=== PATIENT | female | born 1985 | race Caucasian/White ===

== ENCOUNTER 2021-11-01 10:29 | Emergency (ER) | payer OTHER, SELFPAY ==
[2021-11-01] VITALS (38 sets, daily range): BP systolic 134–201; BP diastolic 71–129; PULSE 63–94; RESP 13–26; TEMP 36.9; O2SAT 95–100; BMI 27.8
[2021-11-01 11:08] LABS: Add Manual Diff / Slide Review NO; Basophils Absolute Auto 0 /uL (0-100); Basophils Percent Auto 0.5 % (0-2); Eosinophils Absolute Auto 100 /uL (0-450); Eosinophils Percent Auto 1.8 % (2-4); Hematocrit 35.2 % (36-46); Hemoglobin 11.1 g/dL (12.0-16.0); Lymphocytes Absolute Auto 1100 /uL (1100-4500); Lymphocytes Percent Auto 19.3 % (25-40); Mean Corpuscular HGB Conc 31.6 % (30-36); Mean Corpuscular Hemoglobin 24.3 PG (26-34); Mean Corpuscular Volume 76.8 fL (80-100); Monocytes Absolute Auto 500 /uL (0-900); Monocytes Percent Auto 9.5 % (3-14); Neutrophils Absolute Auto 4000 /uL (1500-7000); Neutrophils Percent Auto 68.9 % (50-75); Platelet Count 375 X10^3/uL (150-400); Red Blood Cell Count 4.59 X10^6/uL (4.0-5.2); Red Cell Distribution Width 16.8 % (11.6-14.8); White Blood Cell Count 5.8 X10^3/uL (4.5-11.0)
[2021-11-01 11:18] LABS: Alanine Aminotransferase 25 IU/L (<35); Albumin 4.1 g/dL (3.5-5.0); Albumin Globulin Ratio 1.4 (1.0-2.8); Alkaline Phosphatase 66 U/L (38-126); Aspartate Aminotransferase 28 IU/L (14-36); BUN Creatinine Ratio 10.4 (6-22); Bilirubin Total 0.5 mg/dL (0.2-1.3); Blood Urea Nitrogen 8 mg/dL (7-17); Calcium 8.8 mg/dL (8.4-10.2); Carbon Dioxide 25 mmol/L (22-32); Chloride 107 mmol/L (98-107); Estimated Glomerular Filt Rate > 60.0 mL/min (>60); Glucose 93 mg/dL (70-100); HEMOLYSIS < 15 (0-50); Lipase 78 U/L (23-300); Potassium 3.9 mmol/L (3.4-5.1); Sodium 138 mmol/L (137-145); Total Protein 7.1 g/dL (6.3-8.2)
--- NOTE | 2021-11-01 11:54 | ED.ABDPAIN ---
HPI - Abdominal Pain General Chief Complaint: Abdominal Pain Stated Complaint: STOMACH PAIN AND A BULDGE Time Seen by Provider: 11/01/21 11:53 Source: patient Mode of arrival: Ambulatory Limitations: no limitations History of Present Illness HPI narrative: 36-year-old female comes with complaint of abdominal pain and a bulge that is close to the umbilicus. Patient states she was working out a lot yesterday. She had a little bit of discomfort but woke up this morning quite a bit of pain and a bulge in her abdomen which was new. Patient attempted to reduce she says it will push inwards but is quite painful. Has had prior abdominal surgeries with a colon resection that was laparoscopic in 2002 for colon cancer. Patient normally follows at [facility] for her follow-up care but her surgery was at [place] in [place]. Patient is on Metamucil and medications to help with bowel movements but no other daily medications. She denies fevers or chills, no nausea or vomiting, she has been stooling regularly, patient does not have any dysuria urgency or frequency. She has any chest pain or shortness of breath no known drug allergies. No tobacco, occasional alcohol, no illicit. Related Data Previous Rx's Medication Instructions Recorded hydrocodone 7.5 mg-acetaminophen 1 tab PO Q6H PRN #10 tab 11/01/21 325 mg tablet Allergies Allergy/AdvReac Type Severity Reaction Status Date / Time No Known Drug Allergies Allergy Verified 11/01/21 10:44 Review of Systems Review of Systems ROS Unobtainable: All systems reviewed & are unremarkable except as noted in HPI and below Patient History Social History Smoking Status: Unknown if ever smoked Smoking Status: Unknown if ever smoked alcohol intake frequency: holidays/special occasions only Substance Use Type: does not use Exam Narrative Exam Narrative: GENERAL: Alert and oriented x three, female in mild distress. HEENT: Head normocephalic, atraumatic, EOMI, pupils reactive, face symmetric, moist mucous membranes NECK: Supple, full range of motion CARDIOVASCULAR: Regular rate and rhythm without murmurs, rubs or gallops. RESPIRATORY: Breath sounds equal bilaterally, no wheezes rales or rhonchi. ABDOMEN: Soft, patient has mild generalized tenderness but does have an easily visualized bulge that is approximately 4 cm circumference just superior into the right of the umbilicus which is quite tender and I am unable to easily reduce with palpation. Bowel sounds slightly decreased in all quadrants. No guarding or rebound, rigidity, no mass. : No CVA tenderness EXTREMITIES: Normal range of motion, no clubbing or edema. Neurovascularly intact NEUROLOGICAL: Cranial nerves II through XII grossly intact. Moving all extremities SKIN: Warm, dry, no petechiae, no rashes or lesions. Initial Vital Signs Initial Vital Signs: Vital Signs Temperature 98.5 F 11/01/21 10:38 Pulse Rate 75 11/01/21 10:38 Respiratory Rate 15 11/01/21 10:38 Blood Pressure 187/82 H 11/01/21 10:38 Pulse Oximetry 100 11/01/21 10:38 Procedures Procedural Sedation Time of procedure: 15:00 Consent signed: Yes Time out performed: Yes Indication: other (abdominal wall hernia) ASA Class: II Mallampati Airway Classification: Class II Time of Last PO Intake: 11:00 Preparation: security monitor applied, pulse oximeter, capnometry used, supplemental O2 applied, suction/airway equipment at bedside and IV secured IV Propofol dose (mg): 150 Intraservice time/total sedation time (min): 25 ED Sedation Level: Moderate (Concious) Patient Tolerated Procedure: Well Complications: Respiratory Depression-Repositioning Required Interventions: Airway repositioned Additional Comments: Patient had 50 mg aliquots given. Minimal sedation with 100 mg additional 50 mg was given. Patient had a very short period of moderate sedation she did have chin lift but no other interventions. This was very short lived and patient was conversant again. Course Orders Ordered: Discontinued Medications Hydrocodone Bitart/Acetaminophen (Hydrocodone/Acet 5/325 Tablet) 2 tab PO NOW ONE Stop: 11/01/21 16:30 Last Admin: 11/01/21 16:45 Dose: 2 tab Documented by: SIERRA Sodium Chloride (Normal Saline 0.9%) 1,000 mls @ 1,000 mls/hr IV BOLUS ONE Stop: 11/01/21 13:02 Last Infusion: 11/01/21 13:33 Dose: 0 mls/hr Documented by: Admin: 11/01/21 12:19 Dose: 1,000 mls/hr Documented by: RITA Ketorolac Tromethamine (Ketorolac 30 Mg/Ml Vial) 15 mg IV NOW ONE Stop: 11/01/21 12:04 Last Admin: 11/01/21 12:19 Dose: 15 mg Documented by: RITA Lorazepam (Lorazepam 2 Mg/Ml Inj) 0.5 mg IV NOW ONE Stop: 11/01/21 12:26 Last Admin: 11/01/21 12:38 Dose: 0.5 mg Documented by: SIERRA Morphine Sulfate (Morphine 4 Mg/Ml Inj) 4 mg IV NOW ONE Stop: 11/01/21 15:13 Last Admin: 11/01/21 15:15 Dose: 4 mg Documented by: SIERRA Propofol (Propofol 200 Mg/20 Ml Vial) 75 mg 1 mg/kg (75 mg) IV NOW ONE Stop: 11/01/21 13:45 Last Admin: 11/01/21 15:41 Dose: Not Given Documented by: SIERRA Propofol (Propofol 200 Mg/20 Ml Vial) 150 mg 2 mg/kg (150 mg) IV NOW ONE Stop: 11/01/21 15:42 Last Admin: 11/01/21 15:05 Dose: 150 mg Documented by: SIERRA Reevaluation(s) Reevaluation #1: Patient much more comfortable after medications. Reviewed labs and findings on imaging. Discussed recommendations from general surgery. Time: 13:35 Reevaluation #2: Patient states pain is improved. We reviewed recommendations from General surgery. Patient was offered to stay here overnight and go to the OR tomorrow for repair of her hernia. She defers and would like to return home plan for outpatient follow-up. We discussed no bowel all within the hernia sac itself today but we discussed return precautions, signs and symptoms to watch for to return emergently. She has tolerated hydrocodone while in the past will give a prescription for this today and recommended to continue stool softeners to make sure she is having regular soft stools. Patient will contact General surgery on Wednesday morning to set up follow-up in Dr. Vidal will work on helping to secure her a slot for the OR. We also discussed to follow up with her surgical team at [facility] and CT disc was given she has some inflammatory changes at the stump and if she prefers she can follow with them for repair. All questions answered. Time: 16:18 Consultations Consultation #1: Dr. Vidal, general surgery. Discussed patient has hernia that is not easily reduced initially patient does have prior surgical history. Agrees with plan to get CT and evaluate. States it may be appropriate depending on CT findings to attempt sedation and reduction in the emergency department. Will recontact with findings. Time: 12:15 Consultation #2: Dr. Vidal, general surgery. Plans to come to the emergency department with procedural sedation performed by myself and Dr. Vidal will attempt reduction. Time: 13:35 Vital Signs Vital signs: Vital Signs - 8 hr 11/01/21 10:38 11/01/21 12:00 11/01/21 13:57 Temperature 98.5 F Pulse Rate 75 63 86 Respiratory Rate 15 18 Blood Pressure 187/82 H 167/90 H Pulse Oximetry 100 99 100 11/01/21 14:00 11/01/21 14:05 11/01/21 14:10 Temperature Pulse Rate 81 81 83 Respiratory Rate 18 16 18 Blood Pressure 160/91 H 147/93 H 148/88 H Pulse Oximetry 100 100 100 11/01/21 14:15 11/01/21 14:20 11/01/21 14:21 Temperature Pulse Rate 71 85 92 H Respiratory Rate 19 18 17 Blood Pressure 134/76 181/76 H Pulse Oximetry 100 99 99 11/01/21 14:25 11/01/21 14:26 11/01/21 14:30 Temperature Pulse Rate 66 81 85 Respiratory Rate 19 17 18 Blood Pressure 160/92 H Pulse Oximetry 98 98 99 11/01/21 14:31 11/01/21 14:35 11/01/21 14:40 Temperature Pulse Rate 85 75 94 H Respiratory Rate 18 15 Blood Pressure 164/73 H 181/129 H 186/102 H Pulse Oximetry 99 98 99 11/01/21 14:45 11/01/21 14:50 11/01/21 14:51 Temperature Pulse Rate 74 81 74 Respiratory Rate 19 18 15 Blood Pressure 201/91 H Pulse Oximetry 98 98 99 11/01/21 14:55 11/01/21 15:00 11/01/21 15:05 Temperature Pulse Rate 69 88 92 H Respiratory Rate 19 25 H Blood Pressure 165/91 H 157/86 H Pulse Oximetry 98 100 97 11/01/21 15:10 11/01/21 15:15 11/01/21 15:20 Temperature Pulse Rate 93 H 86 69 Respiratory Rate 19 21 17 Blood Pressure 170/95 H 167/91 H 147/86 H Pulse Oximetry 97 98 98 11/01/21 15:25 11/01/21 15:30 11/01/21 15:35 Temperature Pulse Rate 67 71 69 Respiratory Rate 16 14 14 Blood Pressure 135/81 144/71 H 141/82 H Pulse Oximetry 99 99 99 11/01/21 15:40 11/01/21 15:45 11/01/21 15:46 Temperature Pulse Rate 67 65 81 Respiratory Rate 26 H 16 20 Blood Pressure 151/81 H Pulse Oximetry 99 98 98 11/01/21 15:50 11/01/21 15:55 11/01/21 16:00 Temperature Pulse Rate 78 70 80 Respiratory Rate 19 15 16 Blood Pressure 142/82 H Pulse Oximetry 98 96 98 11/01/21 16:05 11/01/21 16:10 11/01/21 16:15 Temperature Pulse Rate 83 87 79 Respiratory Rate 17 20 15 Blood Pressure 152/88 H Pulse Oximetry 97 97 98 11/01/21 16:20 11/01/21 16:21 Temperature Pulse Rate 74 90 Respiratory Rate 16 17 Blood Pressure 148/98 H Pulse Oximetry 97 98 MDM - Abdominal Pain Lab Data Result diagrams: 11/01/21 10:58 11/01/21 10:58 Labs: Lab Results 11/01/21 11/01/21 11/01/21 Range/Units 10:58 10:58 13:32 WBC 5.8 (4.5-11.0) X10^3/uL RBC 4.59 (4.0-5.2) X10^6/uL Hgb 11.1 L (12.0-16.0) g/dL Hct 35.2 L (36-46) % MCV 76.8 L (80-100) fL MCH 24.3 L (26-34) PG MCHC 31.6 (30-36) % RDW 16.8 H (11.6-14.8) % Plt Count 375 (150-400) X10^3/uL Neut % (Auto) 68.9 (50-75) % Lymph % (Auto) 19.3 L (25-40) % [place] % (Auto) 9.5 (3-14) % Eos % (Auto) 1.8 L (2-4) % Baso % (Auto) 0.5 (0-2) % Neut # (Auto) 4000 (8337-9650) /uL Lymph # (Auto) 1100 (3043-7117) /uL [place] # (Auto) 500 (0-900) /uL Eos # (Auto) 100 (0-450) /uL Baso # (Auto) 0 (0-100) /uL Sodium 138 (137-145) mmol/L Potassium 3.9 (3.4-5.1) mmol/L Chloride 107 (98-107) mmol/L Carbon Dioxide 25 (22-32) mmol/L BUN 8 (7-17) mg/dL Creatinine 0.77 (0.52-1.04) mg/dL Estimated GFR > 60.0 (>60) mL/min BUN/Creatinine Ratio 10.4 (6-22) Glucose 93 (70-100) mg/dL Calcium 8.8 (8.4-10.2) mg/dL Total Bilirubin 0.5 (0.2-1.3) mg/dL AST 28 (14-36) IU/L ALT 25 (<35) IU/L Alkaline Phosphatase 66 (38-126) U/L Total Protein 7.1 (6.3-8.2) g/dL Albumin 4.1 (3.5-5.0) g/dL Globulin 3.0 (1.7-4.1) g/dL Albumin/Globulin Ratio 1.4 (1.0-2.8) Lipase 78 (23-300) U/L SARS-CoV-2 (PCR) Negative (Negative) Point of care testing: Point of Care Testing Test Results Negative Urine Dip Bedside Urine Glucose Negative Bedside Urine Bilirubin - Negative Bedside Urine Ketone - Negative Urine Specific [place] 1.030 Bedside Urine Occult Blood +/- Bedside Urine pH 6.0 Bedside Urine Protein - Negative Bedside Urine Urobilinogen 0.2 Bedside Urine Nitrite - Negative Bedside Urine Leukocytes - Negative Esterase Imaging Data CT scan - abdomen/pelvis: Radiologist's Impression: [address] [address] [address] Scan Report Signed Patient: Aimee Cedillo MR#: [id number] : 1985 Acct:[id number] Age/Sex: 36 / F Date of Service: 11/01/21 Loc: ED Accession Number: [id number] ?? Procedure: CT abdomen pelvis w con Ordering Provider: Effie Viveros D.O. PROCEDURE:? CT ABDOMEN PELVIS W CON ? INDICATIONS:? abd hernia, hx colon resection ? TECHNIQUE:? After the administration of intravenous contrast, axial sections acquired from the lung bases to the pubic symphysis.? Coronal and sagittal reformats were performed.? For radiation dose reduction, the following was used:? automated exposure control, adjustment of mA and/or kV according to patient size.? ? COMPARISON:? [facility], CT, ABDOMEN/PELVIS WITH CONTRAST, 09/14/2014, 12:41. ? FINDINGS:? Image quality:? Excellent.? ? Lung bases:? Unremarkable. Heart:? No significant findings. ? ABDOMEN: Liver:? Unremarkable.? ? Gallbladder:? Unremarkable.? ? Biliary ducts:? Unremarkable.? ? Pancreas:? Unremarkable.? ? Spleen:? Unremarkable.? ? Adrenal Glands:? Unremarkable.? ? Kidneys and Ureters:? Unremarkable.? ? ? Stomach and Bowel:? Remote subtotal colectomy.? Inflammatory change in the residual rectal stump is again noted. Peritoneum:? No abnormal intraperitoneal fluid.? No free air.? ? Ventral Wall: ? There are 2 focal ventral abdominal wall hernias.? 1 of the hernias is an umbilical hernia, which was previously present.? Approximately 2.2 cm superior to the umbilical hernia is a midline ventral hernia which has appeared, and measures approximately 1.2 cm in diameter.? It appears to contain a recanalized umbilical vein and has ill-defined fluid within the hernia sac.? The ill-defined fluid measures approximately 5.1 x 8.7 x 3.1 cm in diameter. Abdominal Nodes:? No retroperitoneal or mesenteric adenopathy by size criteria.? Vessels:? Aorta and inferior vena cava are normal in size.? ? PELVIS: Pelvic Organs:? Unremarkable.? ? Bladder:? Unremarkable.? ? Pelvic Nodes: No enlarged lymph nodes.? Miscellaneous: No hernias are seen. ? ? ? Bones:? Unremarkable.? IMPRESSION:? ? 1. Previous umbilical hernia containing fat again noted. ? 2. Interval development of a midline ventral wall abdominal hernia proximally 2.2 cm superior to the umbilical hernia.? It appears to contain a recanalized umbilical vein, and has ill-defined fluid present within the hernia sac. ? 3. Remote subtotal colectomy with an inflammatory process again noted involving the rectal stump.? ? ? Dictated by: Luther James M.D. on 11/01/2021 at 11:49 ? ? Approved by: Luther James M.D. on 11/01/2021 at 11:57?? MDM Narrative Medical decision making narrative: This is a 36-year-old female comes with complaint of abdominal pain and bulge and on physical exam has hernia. Patient has had prior colon resection CT abdomen pelvis was obtained as well as general surgery consultation. Patient's labs are reassuring. No nausea or vomiting and she has had normal bowel movements. Patient does have a hernia with fluid collection noted she has a secondary hernia present which is nontender. She also has some inflammatory changes at the rectal stump which was discussed with the patient and she has planned for sigmoidoscopy with direct visualization on the 11 of November. After discussion with General surgery plan for attempted reduction here in the department with procedural sedation. Discussed with patient she is open to this and consent was signed. In the department patient had procedural sedation by myself with unsuccessful attempted reduction by Dr. Vidal from general surgery. Patient's CT was reviewed by Dr. Vidal who states there is no bowel present and if she prefers to return home and is comfortable can return home for outpatient follow-up and surgical treatment of her hernia. If patient prefers they are happy to admit and likely take to OR tomorrow for surgical repair. Discussed with patient after recovered from her sedation and patient elects to return home at this time. Prescription was sent for oral pain medication we discussed at length return precautions signs and symptoms to watch for and continue with stool softeners to prevent constipation. Patient did have to call back, the local pharmacy had run out of [place] 5/325 we did call and confirm this. Was changed to [place] 7.5 mg/325mg. Discharge Plan Departure Patient Disposition: Home Clinical Impression: Abdominal wall hernia Activity Restrictions/Additional Instructions: Follow-up with general surgery for repair of your hernia. Call Wednesday morning for an appointment. Dr. Vidal is hoping to take you to the OR the next 1-2 weeks since you have elected not to stay in the hospital for surgical repair. You can also follow with your surgical team at [facility] if you prefer. A CT is also provided with your findings today, it shows a hernia but without bowel in the hernia today. Please note there was some inflammatory changes at the rectal stump noted on your CT sure this with your surgical team at [facility]. You may take [place] 1-2 tablets every 6 hours as needed for pain. You can take ibuprofen up to 800 mg every 8 hours with this medication. This medication can make you sleepy do not drive, perform hazardous activities or make any major decisions while taking it. This medication will make you constipated please take a stool softener once to twice daily until stools are soft and regular. [facility]cription sent to [facility]. Please return for fevers, if you have vomiting, if you are not having any bowel movements, not passing flatus, if you are having increasing pain, if you are not able to control your pain at home, if your her knee appears to be growing in size are you having worsening symptoms please return to the emergency department. Prescriptions: New hydrocodone-acetaminophen 7.5-325 mg tablet 1 tab PO Q6H PRN (Reason: pain) Qty: 10 0RF Referrals: Erick Vidal MD [Physician] - Stand Alone Forms: Work Release Note
--- NOTE | 2021-11-01 12:03 | DI.CT.S_ITS ---
PROCEDURE: CT ABDOMEN PELVIS W CON INDICATIONS: abd hernia, hx colon resection TECHNIQUE: After the administration of intravenous contrast, axial sections acquired from the lung bases to the pubic symphysis. Coronal and sagittal reformats were performed. For radiation dose reduction, the following was used: automated exposure control, adjustment of mA and/or kV according to patient size. COMPARISON: [facility], CT, ABDOMEN/PELVIS WITH CONTRAST, 09/14/2014, 12:41. FINDINGS: Image quality: Excellent. Lung bases: Unremarkable. Heart: No significant findings. ABDOMEN: Liver: Unremarkable. Gallbladder: Unremarkable. Biliary ducts: Unremarkable. Pancreas: Unremarkable. Spleen: Unremarkable. Adrenal Glands: Unremarkable. Kidneys and Ureters: Unremarkable. Stomach and Bowel: Remote subtotal colectomy. Inflammatory change in the residual rectal stump is again noted. Peritoneum: No abnormal intraperitoneal fluid. No free air. Ventral Wall: There are 2 focal ventral abdominal wall hernias. 1 of the hernias is an umbilical hernia, which was previously present. Approximately 2.2 cm superior to the umbilical hernia is a midline ventral hernia which has appeared, and measures approximately 1.2 cm in diameter. It appears to contain a recanalized umbilical vein and has ill-defined fluid within the hernia sac. The ill-defined fluid measures approximately 5.1 x 8.7 x 3.1 cm in diameter. Abdominal Nodes: No retroperitoneal or mesenteric adenopathy by size criteria. Vessels: Aorta and inferior vena cava are normal in size. PELVIS: Pelvic Organs: Unremarkable. Bladder: Unremarkable. Pelvic Nodes: No enlarged lymph nodes. Miscellaneous: No hernias are seen. Bones: Unremarkable. IMPRESSION: 1. Previous umbilical hernia containing fat again noted. 2. Interval development of a midline ventral wall abdominal hernia proximally 2.2 cm superior to the umbilical hernia. It appears to contain a recanalized umbilical vein, and has ill-defined fluid present within the hernia sac. 3. Remote subtotal colectomy with an inflammatory process again noted involving the rectal stump. Dictated by: Luther James M.D. on 11/01/2021 at 11:49 Approved by: Luther James M.D. on 11/01/2021 at 11:57
[2021-11-01] MEDS: KETOROLAC 30 MG/ML VIAL 15 MG IV (12:19)
[2021-11-01] MEDS: SODIUM CHLORIDE 0.9% 1,000 ML 1000 ML IV (12:19)
[2021-11-01] MEDS: LORazepam 2 MG/ML INJ 0.5 MG IV (12:38)
[2021-11-01 14:55] LABS: COVID19 -Nasal RAPID Negative (Negative)
[2021-11-01] MEDS: propofoL 200 MG/20 ML VIAL 150 MG IV (15:05)
[2021-11-01] MEDS: MORPHINE 4 MG/ML INJ IV (15:15)
[2021-11-01] MEDS: HYDROCODONE/ACET 5/325 TABLET 2 TAB PO (16:45)
== END 2021-11-01 16:47 | disposition home or self-care (01) ==
PROVIDERS: Emergency Provider Emergency Medicine
DX: K43.9 Ventral hernia without obstruction or gangrene (principal); Z20.822 Contact with and (suspected) exposure to COVID-19
CPT/HCPCS: 36415; 74177; 80053; 81003; 81025; 83690; 85025; 87635; 96374; 96375; 99156; 99157; 99284; 99285; 99291; C9803; J1885; J2060; J2270; J2704; Q9967

== ENCOUNTER 2021-11-03 11:58 | Inpatient (IN) | payer OTHER, SELFPAY ==
[2021-11-03 12:13] VITALS: PULSE 73; RESP 17; TEMP 36.6; O2SAT 99; BMI 27.4
[2021-11-03 14:43] LABS: Add Manual Diff / Slide Review NO; Basophils Absolute Auto 0 /uL (0-100); Basophils Percent Auto 0.7 % (0-2); Eosinophils Absolute Auto 0 /uL (0-450); Eosinophils Percent Auto 0.3 % (2-4); Hematocrit 34.2 % (36-46); Hemoglobin 10.8 g/dL (12.0-16.0); Lymphocytes Absolute Auto 1000 /uL (1100-4500); Lymphocytes Percent Auto 14.9 % (25-40); Mean Corpuscular HGB Conc 31.6 % (30-36); Mean Corpuscular Hemoglobin 24.3 PG (26-34); Mean Corpuscular Volume 77.1 fL (80-100); Monocytes Absolute Auto 400 /uL (0-900); Monocytes Percent Auto 6.1 % (3-14); Neutrophils Absolute Auto 5300 /uL (1500-7000); Platelet Count 350 X10^3/uL (150-400); Red Blood Cell Count 4.43 X10^6/uL (4.0-5.2); Red Cell Distribution Width 16.9 % (11.6-14.8); White Blood Cell Count 6.8 X10^3/uL (4.5-11.0)
--- NOTE | 2021-11-03 14:50 | ED.ABDPAIN ---
HPI - Abdominal Pain General Chief Complaint: Abdominal Pain Stated Complaint: Abd Wall Hernia Time Seen by Provider: 11/03/21 14:37 Source: patient Mode of arrival: Ambulatory History of Present Illness HPI narrative: This 36-year-old female presents with a previously known ventral hernia, she was seen here 2 days ago with an incarcerated hernia. Surgery was consulted, the hernia was not reducible. However there was no bowel in the hernia. The intent was to follow-up for scheduled surgery. She is back with exacerbation of pain, the hernia continues to protrude. She has no fever or chills. She has nausea, however she has not had anything to eat or drink since yesterday. BMs are normal. She has no fever chills. She has a prior history of subtotal colectomy, and a known umbilical hernia. Has nose or small bowel obstruction she has no history of this ventral hernia, it is quite new. She describes it as simply popping up about 3 days ago. She has no dysuria or hematuria. She is on control, is unlikely. Recent test was negative. She is vaccinated for COVID-19. Recent COVID-19 testing is negative Related Data Home Medications Medication Instructions Recorded Confirmed diphenoxylate-atropine 2.5 1 tab PO Q6H 11/03/21 11/03/21 mg-0.025 mg tablet levonorgestrel 0.15 mg-ethinyl 1 tab PO DAILY 11/03/21 11/03/21 estradiol 0.03 mg tablet (Altavera (28)) methylphenidate HCl 36 mg 36 mg PO DAILY 11/03/21 11/03/21 tablet,extended release 24 hr pantoprazole 40 mg tablet,delayed 40 mg PO DAILY 11/03/21 11/03/21 release Allergies Allergy/AdvReac Type Severity Reaction Status Date / Time No Known Drug Allergies Allergy Verified 11/01/21 10:44 Review of Systems Constitutional Constitutional: Denies chills, Denies fatigue, Denies fever(s) and Denies headache(s) ENT Ears, Nose, Mouth, and Throat: Denies vertigo, Denies dizziness, Denies headache(s), Denies neck pain, Denies sinus pain and Denies sore throat Cardiovascular Cardiovascular: Denies chest pain, Denies irregular heart rhythm and Denies dyspnea Respiratory Respiratory: Denies cough and Denies dyspnea Gastrointestinal Gastrointestinal: Reports as per HPI Genitourinary Genitourinary: Denies dysuria Musculoskeletal Musculoskeletal: Denies back pain and Denies neck pain Integumentary/Breasts Skin/Breast: Denies lesions and Denies rash Neurologic Neurologic: Denies confusion, Denies vertigo, Denies dizziness and Denies headache(s) Psychiatric Psychiatric: Denies confusion Endocrine Endocrine: Denies fatigue Hematologic/Lymphatic On Anticoagulants: No Patient History Medical History (Updated 11/03/21 @ 15:00 by Adilson Diaz MD) Abdominal wall hernia Surgical History Status post partial colectomy Social History household members: spouse Smoking Status: Never smoker alcohol intake: current Smoking Status: Unknown if ever smoked alcohol intake frequency: holidays/special occasions only Substance Use Type: does not use Exam Initial Vital Signs Initial Vital Signs: Vital Signs Temperature 97.8 F 11/03/21 12:13 Pulse Rate 73 11/03/21 12:13 Respiratory Rate 17 11/03/21 12:13 Pulse Oximetry 99 11/03/21 12:13 Const General: cooperative, healthy appearing and other (Uncomfortable.) Orientation: Orientation (Normal.) [facility] Head: normocephalic and atraumatic Mouth: other (Dry oral mucosa. No oropharyngeal erythema.) Eyes General: appearance normal, both eyes and all related structures Resp Auscultation: clear to auscultation bilaterally Cardio Rate: regular rate Rhythm: regular rhythm Heart Sounds: S1 normal, S2 normal, no click, no murmurs and no rubs GI Other: Non reducible ventral hernia in the right upper abdomen. No abdominal distension. Normal bowel sounds. No other masses. Skin General: no rashes or lesions noted Neuro General: patient alert, patient awake, patient oriented x3 and no focal motor deficits Extrem General: normal to inspection, no pedal edema and no calf tenderness Psych Mental Status: mental status grossly normal Course Course Course Narrative: The case was discussed with Dr. Yu, on-call surgeon. He is aware for due to her recent ER visit. He is also present in the department due to another case. Following his evaluation is decided that she will go to surgery today. Orders Ordered: ED Orders 11/03/21 14:30 Complete Blood Count AUTO DIFF Stat Comprehensive Metabolic Panel Stat Lipase Stat 11/03/21 15:24 COVID19 -Nasal swab/Pre-Proc Stat Acetaminophen (Acetaminophen 325 Mg Tablet) 650 mg PO Q6HR [facility] Last Admin: 11/03/21 18:23 Dose: 650 mg Documented by: ROSS Hydromorphone HCl (Hydromorphone 0.5 Mg Inj) 0.5 mg IV Q2H PRN PRN Reason: Breakthrough pain only (8-10) Last Admin: 11/03/21 21:22 Dose: 0.5 mg Documented by: Admin: 11/03/21 18:24 Dose: 0.5 mg Documented by: ROSS Sodium Chloride (Normal Saline 0.9%) 1,000 mls @ 1,000 mls/hr IV BOLUS PRN PRN Reason: Fluid replacement Lactated Ringer's (Lactated Ringers) 1,000 mls @ 100 mls/hr IV CONT [facility] Last Admin: 11/03/21 18:25 Dose: 100 mls/hr Documented by: ROSS Ibuprofen (Ibuprofen 600 Mg Tablet) 600 mg PO Q6HR [facility] Last Admin: 11/03/21 18:24 Dose: 600 mg Documented by: ROSS Naloxone HCl (Naloxone 0.4 Mg/Ml Vial) 0.2 mg IV Q2MIN PRN PRN Reason: Opiate Reversal Ondansetron HCl (Ondansetron 4 Mg/2 Ml Inj) 4 mg IV Q6HR [facility] Last Admin: 11/03/21 20:16 Dose: Not Given Documented by: ROGE Psyllium Hydrophilic Mucilloid (Psyllium Husk 1 Packet) 1 packet PO DAILY [facility] Discontinued Medications Hydromorphone HCl (Hydromorphone 0.5 Mg Inj) 0.5 mg IV NOW ONE Stop: 11/03/21 14:48 Last Admin: 11/03/21 15:17 Dose: 0.5 mg Documented by: ISAI Sodium Chloride (Normal Saline 0.9%) 1,000 mls @ 1,000 mls/hr IV BOLUS ONE Stop: 11/03/21 16:07 Last Infusion: 11/03/21 16:53 Dose: 0 mls/hr Documented by: Admin: 11/03/21 15:17 Dose: 1,000 mls/hr Documented by: ISAI Ondansetron HCl (Ondansetron 4 Mg/2 Ml Inj) 4 mg IV NOW ONE Stop: 11/03/21 14:48 Last Admin: 11/03/21 15:17 Dose: 4 mg Documented by: ISAI Vital Signs Vital signs: Vital Signs - 8 hr 11/03/21 15:25 Pulse Rate 78 Respiratory Rate 16 Pulse Oximetry 99 MDM - Abdominal Pain Lab Data Result diagrams: 11/03/21 14:30 11/03/21 14:30 Labs: Lab Results 11/03/21 11/03/21 11/03/21 Range/Units 14:30 14:30 15:24 WBC 6.8 (4.5-11.0) X10^3/uL RBC 4.43 (4.0-5.2) X10^6/uL Hgb 10.8 L (12.0-16.0) g/dL Hct 34.2 L (36-46) % MCV 77.1 L (80-100) fL MCH 24.3 L (26-34) PG MCHC 31.6 (30-36) % RDW 16.9 H (11.6-14.8) % Plt Count 350 (150-400) X10^3/uL Neut % (Auto) 78.0 H (50-75) % Lymph % (Auto) 14.9 L (25-40) % [place] % (Auto) 6.1 (3-14) % Eos % (Auto) 0.3 L (2-4) % Baso % (Auto) 0.7 (0-2) % Neut # (Auto) 5300 (5190-4168) /uL Lymph # (Auto) 1000 L (4120-3942) /uL [place] # (Auto) 400 (0-900) /uL Eos # (Auto) 0 (0-450) /uL Baso # (Auto) 0 (0-100) /uL Sodium 139 (137-145) mmol/L Potassium 4.3 (3.4-5.1) mmol/L Chloride 109 H (98-107) mmol/L Carbon Dioxide 26 (22-32) mmol/L BUN 6 L (7-17) mg/dL Creatinine 0.76 (0.52-1.04) mg/dL Estimated GFR > 60.0 (>60) mL/min BUN/Creatinine Ratio 7.9 (6-22) Glucose 89 (70-100) mg/dL Calcium 8.4 (8.4-10.2) mg/dL Total Bilirubin 0.4 (0.2-1.3) mg/dL AST 27 (14-36) IU/L ALT 24 (<35) IU/L Alkaline Phosphatase 69 (38-126) U/L Total Protein 7.0 (6.3-8.2) g/dL Albumin 4.0 (3.5-5.0) g/dL Globulin 3.0 (1.7-4.1) g/dL Albumin/Globulin Ratio 1.3 (1.0-2.8) Lipase 44 (23-300) U/L SARS-CoV-2 (PCR) Negative (Negative) Point of care testing: Point of Care Testing Test Results Negative Urine Dip Bedside Urine Glucose Negative Bedside Urine Bilirubin - Negative Bedside Urine Ketone - Negative Urine Specific [place] 1.020 Bedside Urine Occult Blood - Negative Bedside Urine pH 6.0 Bedside Urine Protein - Negative Bedside Urine Urobilinogen - Negative Bedside Urine Nitrite - Negative Bedside Urine Leukocytes - Negative Esterase Discharge Plan Departure Patient Disposition: Admitted as Observation Clinical Impression: Incarcerated ventral hernia Admit Date/Time: 11/03/21 16:25 Admit Provider: Erick Vidal
[2021-11-03 15:05] LABS: Alanine Aminotransferase 24 IU/L (<35); Albumin Globulin Ratio 1.3 (1.0-2.8); Alkaline Phosphatase 69 U/L (38-126); Aspartate Aminotransferase 27 IU/L (14-36); BUN Creatinine Ratio 7.9 (6-22); Bilirubin Total 0.4 mg/dL (0.2-1.3); Blood Urea Nitrogen 6 mg/dL (7-17); Calcium 8.4 mg/dL (8.4-10.2); Carbon Dioxide 26 mmol/L (22-32); Chloride 109 mmol/L (98-107); Estimated Glomerular Filt Rate > 60.0 mL/min (>60); Glucose 89 mg/dL (70-100); HEMOLYSIS < 15 (0-50); Lipase 44 U/L (23-300); Potassium 4.3 mmol/L (3.4-5.1); Sodium 139 mmol/L (137-145)
[2021-11-03] MEDS: SODIUM CHLORIDE 0.9% 1,000 ML 1000 ML IV (15:17)
[2021-11-03] MEDS: HYDROMORPHONE 0.5 MG INJ IV ×4 (15:17→23:20)
[2021-11-03] MEDS: ONDANSETRON 4 MG/2 ML INJ IV (15:17)
[2021-11-03 15:25] VITALS: PULSE 78; RESP 16; O2SAT 99
[2021-11-03 16:33] LABS: COVID19 -Nasal RAPID Negative (Negative)
[2021-11-03 16:55] VITALS: BP 177/95; PULSE 76; RESP 16; TEMP 36.9; O2SAT 100
[2021-11-03 17:07] VITALS: BMI 27.4
--- NOTE | 2021-11-03 17:31 | PM.HP.1 ---
History of Present Illness History of Present Illness Date Patient Seen: 11/03/21 Time Patient Seen: 17:31 Chief complaint: Abd Wall Hernia Narrative: Aimee is a 36-year-old woman with a history of a subtotal colectomy for colon cancer several years ago presented 2 days ago with a new painful ventral hernia. CT scan indicated fatty tissue within the hernia itself. An attempt to reduce the hernia with propofol sedation was unsuccessful 2 days ago. She went home with plans to follow-up for an elective outpatient surgery but her pain was too severe today and she returned. She has been able to eat and have normal bowel function but she has been a little bit nauseous today secondary to pain. Patient History Medical History (Updated 11/03/21 @ 15:00 by Adilson Diaz MD) Abdominal wall hernia Surgical History Status post partial colectomy Family & Social History Social History: household members spouse Prior Living Arrangements House Safety & Behavioral: Feels Safe in Current Yes Environment Been Physically Hurt or No Threatened By a Person Suicidal Ideation Description None Suicide Plan Description No Plan Tobacco & Substance use: Smoking Status Never smoker alcohol intake current alcohol intake frequency holiday/special occasion Substance Use Type does not use Meds Home Medications and Allergies Home Medications Medication Instructions Recorded Confirmed Type hydrocodone 7.5 mg-acetaminophen 1 tab PO Q6H PRN #10 tab 11/01/21 Rx 325 mg tablet Allergies Allergy/AdvReac Type Severity Reaction Status Date / Time No Known Drug Allergies Allergy Verified 11/01/21 10:44 Exam Vital Signs (past 8 hours): - 11/03/21 12:13 11/03/21 15:25 Temperature 97.8 F Pulse Rate 73 78 Respiratory Rate 17 16 Pulse Oximetry 99 99 Oxygen Delivery Method Room Air Const General: No acute distress Other: The hernia is about the same size as 2 days ago No peritoneal findings Objective Labs Result Diagrams: 11/03/21 14:30 11/03/21 14:30 Labs: Laboratory Results - last 24 hr 11/03/21 11/03/21 11/03/21 14:30 14:30 15:24 WBC 6.8 RBC 4.43 Hgb 10.8 L Hct 34.2 L MCV 77.1 L MCH 24.3 L MCHC 31.6 RDW 16.9 H Plt Count 350 Neut % (Auto) 78.0 H Lymph % (Auto) 14.9 L [place] % (Auto) 6.1 Eos % (Auto) 0.3 L Baso % (Auto) 0.7 Neut # (Auto) 5300 Lymph # (Auto) 1000 L [place] # (Auto) 400 Eos # (Auto) 0 Baso # (Auto) 0 Sodium 139 Potassium 4.3 Chloride 109 H Carbon Dioxide 26 BUN 6 L Creatinine 0.76 Estimated GFR > 60.0 BUN/Creatinine Ratio 7.9 Glucose 89 Calcium 8.4 Total Bilirubin 0.4 AST 27 ALT 24 Alkaline Phosphatase 69 Total Protein 7.0 Albumin 4.0 Globulin 3.0 Albumin/Globulin Ratio 1.3 Lipase 44 SARS-CoV-2 (PCR) Negative Assessment & Plan Assessment and plan (1) Abdominal wall hernia: Status: Acute Plan Plan for ventral incisional hernia repair with mesh tomorrow. She can have a diet tonight and be NPO at midnight. Time Spent With Patient Critical Care time: I spent a total of [] minutes of critical care time on this patient's care today; this time is exclusive of procedural time. Quality VTE Deep Vein Thrombosis/Pulmonary Embolism Present on Admission: No
[2021-11-03] MEDS: ACETAMINOPHEN 325 MG TABLET 650 MG PO ×2 (18:23→23:19)
[2021-11-03] MEDS: IBUPROFEN 600 MG TABLET PO ×2 (18:24→23:20)
[2021-11-03] MEDS: LACTATED RINGERS 1,000 ML 100 ML IV (18:25)
--- NOTE | 2021-11-03 19:04 | PC.NURSE ---
Patient admitted to acute care for uncontrolled pain in her abdomen. Patient has a hernia to her r.mid quadrant around her navel. She is on a general diet now and tolerated food. She states that her pain was a 8/10, given tylenol, ibuprofen, and 0.5mg of iv dilaudid for comfort and helpful. She will be npo after midnight and will go to surgery in the morning.
[2021-11-03 19:49] VITALS: BP 138/64; PULSE 66; RESP 16; TEMP 36.2; O2SAT 99
[2021-11-03 23:18] VITALS: BP 132/77; PULSE 71; RESP 18; TEMP 36.7; O2SAT 96
[2021-11-04] VITALS (17 sets, daily range): BP systolic 96–154; BP diastolic 54–98; PULSE 63–87; RESP 10–16; TEMP 36.2–36.8; O2SAT 94–100; BMI 27.4
--- NOTE | 2021-11-04 | PATH_ITS ---
[facility] Accession Number: [id number] . 01 Material submitted: . peritoneum - PERITONEAL SAC . 02 Diagnosis: Peritoneal Sac, Incarcerated Ventral Incisional Hernia, Open Repair: Fibroconnective and fibroadipose tissue with patchy inflammation and a focal mesothelial lining with reactive changes, consistent with hernia sac. Negative for atypia or malignancy. MRV 11/11/2021 1301 Local . 02 Electronically signed: . Mi Frey MD, Pathologist NPI- [id number] . 01 Gross description: . Received in formalin, labeled with the patient's name, and additionally labeled peritoneal sac is an irregular portion of dugan-brown to yellow fibromembranous and lobulated adipose tissue measuring 9.5 x 6.5 x 2.0 cm. The serosal surface is smooth and glistening. The specimen is sectioned revealing yellow lobulated adipose cut surfaces with no masses or lesions identified. Pricing Supervisor sections are submitted in cassettes A1 and A2. ([id number]) /MRV 11/06/2021 1230 Local . 02 Pathologist provided ICD-10: K66.9 . 02 CPT . 588109 Specimen Comment: A courtesy copy of this report has been sent to [phone] Performed at: 01 [facility] [address] [facility], [place], [place] [id number] MD Alfonso Spann MD Phone: [phone] Performed at: 02 [facility] [address] [place], [place] [id number] MD Melida Mcclendon MD Phone: [phone]
[2021-11-04] MEDS: IBUPROFEN 600 MG TABLET PO (01:50)
[2021-11-04] MEDS: HYDROMORPHONE 0.5 MG INJ IV ×4 (01:51→08:22)
[2021-11-04] MEDS: ONDANSETRON 4 MG/2 ML INJ IV ×2 (01:51→13:26)
[2021-11-04] MEDS: LACTATED RINGERS 1,000 ML 100 ML IV ×2 (04:05→10:47)
--- NOTE | 2021-11-04 09:16 | PC.NURSE ---
Addendum entered by Natalie Puckett R.N. 11/04/21 19:05: Patient feeling well enough to be discharged home. was called and he is in a meeting but will discharge patient when he is done. She denies pain and is resting comfortably. Addendum entered by Natalie Puckett R.N. 11/04/21 14:16: Patient just back from surgery, she has iv tylenol infusing through her iv. She has an abdominal binder in place, and midline dressing is cdi. Addendum entered by Natalie Puckett R.N. 11/04/21 10:42: Patient left for surgery at 1015. Original Note: Assess- Patient given 0.5mg of iv dilaudid and helpful for discomfort. She is up independently in her room waiting to go to surgery around 1130. Dad is in room visiting. She has been NPO since 0000.
--- NOTE | 2021-11-04 09:27 | CM.DANOTE ---
DCP: Case received, EMR reviewed and met with patient. Patient's father was at bedside. Was able to meet with patient and obtain some information. DCP assessment completed with information currently available. Patient is a 36 year old female who admitted yesterday afternoon to the care of the hospitalist team. PCP: Dr. Klein. Payer: confirmed: Nadia Hubbard. Patient came to the hospital via private vehicle secondary to having abdominal pain. Patient has history of ventral hernia. Patient is having surgery consult for ventral incisional hernia repair. Patient also has history of colectomy for colon cancer. Met with patient in her room. She is sitting up in bed, alert and oriented, pleasant, father in the room as well. She resides in [place] with spouse, Billy. She is independent and is employed at [employer]. P: DCP to continue to follow. Patient should be able to go home when she is deemed medically stable. Zoe Peraza RN/Accounting Software Specialist Discharge Planning/Care Management CM Discharge Assessment Start: 11/04/21 09:26 Freq: Status: Active Protocol: Document 11/04/21 09:26 (Rec: 11/04/21 09:27 [id number]) Discharge Planning Assessment Assigned [employer] Zoe Peraza RN/Accounting Software Specialist Advance Directives? No History Provided By Patient,Medical Record Prior Living Arrangements House Household Members spouse Type of transporation used prior to Drives own vehicle admit Independent with ADL's Yes Is patient alert and oriented? Yes Barriers to Discharge No Discharge Plan Home Transportation Arrangement Spouse Referrals Initiated None needed Whiteboard Updated in Patient Room with Yes name and ext. # of [employer] Review Status In Process Next Review Type Continued Stay Review
--- NOTE | 2021-11-04 10:45 | P.PN_ITS ---
Subjective Subjective Date Patient Seen: 11/04/21 Time Patient Seen: 10:45 Interval history: No changes since yesterday. Exam Vital Signs (past 8 hours): - 11/04/21 03:08 11/04/21 07:16 11/04/21 08:00 Temperature 98.3 F 98.1 F Pulse Rate 87 64 Respiratory Rate 16 12 Blood Pressure 117/75 145/82 H Pulse Oximetry 96 99 98 11/04/21 10:32 Temperature 97.5 F L Pulse Rate 66 Respiratory Rate 16 Blood Pressure 154/90 H Pulse Oximetry 100 Oxygen Delivery Method Room Air Oxygen Flow Rate 0 Objective Labs Result Diagrams: 11/03/21 14:30 11/03/21 14:30 Labs: Laboratory Results - last 24 hr 11/03/21 11/03/21 11/03/21 14:30 14:30 15:24 WBC 6.8 RBC 4.43 Hgb 10.8 L Hct 34.2 L MCV 77.1 L MCH 24.3 L MCHC 31.6 RDW 16.9 H Plt Count 350 Neut % (Auto) 78.0 H Lymph % (Auto) 14.9 L [place] % (Auto) 6.1 Eos % (Auto) 0.3 L Baso % (Auto) 0.7 Neut # (Auto) 5300 Lymph # (Auto) 1000 L [place] # (Auto) 400 Eos # (Auto) 0 Baso # (Auto) 0 Sodium 139 Potassium 4.3 Chloride 109 H Carbon Dioxide 26 BUN 6 L Creatinine 0.76 Estimated GFR > 60.0 BUN/Creatinine Ratio 7.9 Glucose 89 Calcium 8.4 Total Bilirubin 0.4 AST 27 ALT 24 Alkaline Phosphatase 69 Total Protein 7.0 Albumin 4.0 Globulin 3.0 Albumin/Globulin Ratio 1.3 Lipase 44 SARS-CoV-2 (PCR) Negative [facility] Medical History (Updated 11/03/21 @ 15:00 by Adilson Diaz MD) Abdominal wall hernia Surgical History Status post partial colectomy Social History household members: spouse Smoking Status: Never smoker alcohol intake: current Assessment & Plan Assessment and plan (1) Incarcerated ventral hernia: Status: Acute Plan Plan to proceed with ventral incisional hernia repair with mesh today. Time Spent With Patient Critical Care time: I spent a total of [] minutes of critical care time on this patient's care today; this time is exclusive of procedural time. Quality VTE Deep Vein Thrombosis/Pulmonary Embolism Present on Admission: No
[2021-11-04] MEDS: CEFAZOLIN 2 GM/20 ML SYRINGE IV (11:28)
--- NOTE | 2021-11-04 11:35 | SUR.OPER ---
Supine on padded OR bed, head on pillow, arms secured on padded arm boards at <90 degrees abduction, legs uncrossed, safety belt at thigh, tape over blanket over lower legs.
[2021-11-04] MEDS: BUPIVACAINE 0.25% (PF) VIAL 30 ML INJ (12:00)
--- NOTE | 2021-11-04 13:12 | PM.OP.1 ---
Operative Date/Time/Diagnoses Date of procedure: 11/04/21 Time of procedure: 13:12 Pre-op diagnosis: Incarcerated ventral incisional hernia Post-op diagnosis: same Procedure & Clinicians Procedure: Open ventral hernia repair with mesh Same procedure as scheduled: Yes Surgeon: Erick Vidal Operative Notes Estimated Blood Loss (mL): 15 Procedure in detail: Ancef was administered. The patient was brought to the operating room, placed on the table in the supine position and general anesthesia was induced. The abdomen was prepped and draped in the usual fashion. A time-out was performed. A 6 cm transverse incision was made over the palpable hernia. Dissection was carried down to the hernia sac. The hernia sac was freed from the fascial ring. The hernia contents were stuck in the tight fascial defect. The sac was quite thin and translucent and it appeared that there was viable omentum some and probably falciform ligament and the hernia sac. There were some contused segments but he no necrotic or ischemic tissue. The fascial defect was extended 5 mm in each direction left and right to attempt reduction of the hernia contents. The contents would not completely reduce so the LigaSure was used to amputate portion of the sac wall. The neck of the remaining peritoneal sac was closed with a running 3-0 Vicryl. Additional local was injected into the fascia. The fascia was then closed transversely with 6 interrupted 0 Ethibond sutures. The subcutaneous adipose tissue was cleared off of the anterior sheath circumferentially about 2 cm in each direction. A polypropylene mesh was trimmed to fit over the fascial closure and secured to the fascia with Tisseel. Once the Tisseel was dried the subcutaneous adipose tissue was closed with interrupted 3-0 Vicryl sutures. The skin was closed with multiple interrupted 3-0 Vicryl dermal sutures followed by a running 4 Monocryl subcuticular closure. Steri-Strips were applied and an abdominal binder was applied over several 4x4s. Post-operative Condition: stable Disposition: PACU
[2021-11-04] MEDS: ACETAMINOPHEN IV 1,000 MG/100 ML VIAL 400 MG IV (13:55)
--- NOTE | 2021-11-04 14:00 | SUR.PHASEI ---
1356 Called in OR #[address] Galvan. Notified that pt with pain and nausea, unable to tolerate oral Tylenol at this time.
--- NOTE | 2021-11-04 20:00 | PM.DS.1 ---
History of Present Illness History of Present Illness Chief complaint: Abd Wall Hernia Narrative: Aimee is a 36-year-old woman with a history of a subtotal colectomy for colon cancer several years ago presented 2 days ago with a new painful ventral hernia. CT scan indicated fatty tissue within the hernia itself. An attempt to reduce the hernia with propofol sedation was unsuccessful 2 days ago. She went home with plans to follow-up for an elective outpatient surgery but her pain was too severe today and she returned. She has been able to eat and have normal bowel function but she has been a little bit nauseous today secondary to pain. Discharge Providers Provider Date of admission: 11/03/21 16:25 Discharge Date: 11/04/21 Primary care physician: Elysia Klein DO Discharge provider: Erick Vidal MD Summary Hospital Course Discharge Diagnosis: Incarcerated ventral hernia Hospital Course: The patient underwent surgery on 11/04/2021. Please see the operative note for details. She felt better and went home later on the same day as surgery. Exam Vital Signs (past 8 hours): - 11/04/21 12:58 11/04/21 13:03 11/04/21 13:08 Temperature 97.2 F L Pulse Rate 73 68 64 Respiratory Rate 10 L 10 L 10 L Blood Pressure 96/54 L 101/55 L 104/60 Pulse Oximetry 94 94 94 11/04/21 13:13 11/04/21 13:18 11/04/21 13:24 Temperature 97.4 F L Pulse Rate 64 63 81 Respiratory Rate 10 L 10 L 13 Blood Pressure 108/57 L 105/61 130/79 Pulse Oximetry 94 95 96 11/04/21 13:28 11/04/21 13:43 11/04/21 13:57 Temperature 97.6 F 98.2 F Pulse Rate 72 65 79 Respiratory Rate 12 14 16 Blood Pressure 136/78 140/85 150/85 H Pulse Oximetry 98 98 96 11/04/21 14:10 11/04/21 15:15 11/04/21 15:45 Temperature 98.3 F 97.9 F 98.2 F Pulse Rate 70 65 84 Respiratory Rate 16 16 16 Blood Pressure 149/91 H 146/98 H 150/95 H Pulse Oximetry 99 97 98 11/04/21 17:00 Temperature 98.3 F Pulse Rate 70 Respiratory Rate 16 Blood Pressure 140/90 Pulse Oximetry 99 Oxygen Delivery Method Room Air Oxygen Flow Rate 0 Objective Labs Result Diagrams: 11/03/21 14:30 11/03/21 14:30 PFSH Medical History (Updated 11/03/21 @ 15:00 by Adilson Diaz MD) Abdominal wall hernia Surgical History Status post partial colectomy Social History household members: spouse Smoking Status: Never smoker alcohol intake: current Discharge Plan Discharge Plan Patient Disposition: Home Provider Discharge Comment: No lifting greater than 20 lb for 4 weeks. Okay to remove the outer dressing and shower after 24 hours. Leave the Steri-Strips on until they start to peel off in 1-2 weeks. Discharge orders & Medications Prescriptions: New hydrocodone-acetaminophen 5-325 mg tablet 1 tab PO Q8H PRN (Reason: pain) Qty: 14 0RF Continued levonorgestrel-ethinyl estrad [Altavera (28)] 0.15-0.03 mg tablet 1 tab PO DAILY 0RF methylphenidate HCl 36 mg tablet extended release 24hr 36 mg PO DAILY 0RF Label Comments: take 1 tablet by mouth every morning pantoprazole 40 mg tablet,delayed release (DR/EC) 40 mg PO DAILY 0RF Label Comments: take 1 tablet by mouth once daily for indigestion diphenoxylate-atropine 2.5-0.025 mg tablet 1 tab PO Q6H 0RF Label Comments: take 1 to 2 tablets by mouth immediately then 1 tablet every 6 ho... (REFER TO PRESCRIPTION NOTES). Follow up/Referrals: Elysia Klein DO [Primary Care Provider] - Discharge Data Primary Care Provider: Elysia Klein Quality VTE Deep Vein Thrombosis/Pulmonary Embolism Present on Admission: No
[2021-11-04] MEDS: HYDROCODONE/ACET 5/325 TABLET 1 TAB PO (20:36)
== END 2021-11-04 21:15 | disposition home or self-care (01) | DRG 355 ==
LOC: ED 15:11 → AC 16:26
PROVIDERS: Admitting Provider Surgery; Emergency Provider Emergency Medicine; PCP Family Medicine; Referring Provider Emergency Medicine; Visit Provider Surgery
PROC: 0WUF0JZ Supplement Abdominal Wall with Synthetic Substitute, Open Approach (ICD-10-PCS; principal; 2021-11-04 11:30)
DX: K43.6 Other and unspecified ventral hernia with obstruction, without gangrene (principal); Z20.822 Contact with and (suspected) exposure to COVID-19
CPT/HCPCS: 36415; 49561; 49568; 80053; 81003; 81025; 83690; 85025; 87635; 96361; 96374; 96375; 99222; 99284; C9803; J0131; J0690; J1100; J1170; J1885; J2250; J2405; J2704; J3010

== ENCOUNTER → 2024-11-27 17:30 | Outpatient (CLI) | payer OTHER, SELFPAY | PROVIDERS: PCP Family Medicine; Visit Provider Family Medicine | DX: F90.9 Attention-deficit hyperactivity disorder, unspecified type (principal) | CPT/HCPCS: 80360 ==

== ENCOUNTER → 2025-03-19 09:53 | Outpatient (CLI) | payer OTHER, SELFPAY ==
--- NOTE | 2025-03-19 09:55 | DI.MG.S_ITS ---
MM screening mammo BI: 03/19/2025. BI-RADS: 2 CLINICAL: 40-year old female for bilateral screening mammogram. Tyrer-Cuzick lifetime risk of 13.1%. No personal or first-degree family history of breast cancer. The patient had a prior left breast biopsy. PRIOR EXAMS: No previous examination is available for comparison. As part of a complete interpretation, comparison with prior outside images is suggested. Your patient will be asked to provide prior exams, and if we obtain the prior studies an additional report will be generated. MAMMOGRAPHY TECHNIQUE: 2D and 3D (tomosynthesis) digital mammographic views obtained, with additional images as needed for full coverage. Current study was also evaluated with a Computer Aided Detection (CAD) system. DENSITY C. The breasts are heterogeneously dense, which may obscure small masses. MAMMOGRAPHY FINDINGS Right: No suspicious mass, asymmetry, microcalcification, or other abnormality seen. Left: Biopsy marker present on the left. There are no suspicious masses, calcifications, or other findings in the breast. IMPRESSION: Right * No evidence of malignancy. Left * No evidence of malignancy with benign findings. RECOMMENDATIONS Bilateral * Annual screening mammography. OVERALL ASSESSMENT CATEGORY BI-RADS-2: Benign. The [employer] recommends annual screening mammography beginning at age 40 for women with average risk of breast cancer. ELECTRONICALLY SIGNED: Samra Manzanares M.D. on 03/19/2025 at 08:43:08 PM PT Interpreting Station ID: [id number]
== END ==
LOC: MAMMO 09:54
PROVIDERS: PCP Family Medicine; Referring Provider Family Medicine; Visit Provider Family Medicine
DX: Z12.31 Encounter for screening mammogram for malignant neoplasm of breast (principal); R92.333 Mammographic heterogeneous density, bilateral breasts
CPT/HCPCS: 77063; 77067